=== PATIENT | male | born 1955 | race Caucasian/White ===

== ENCOUNTER 2019-02-13 14:20 | Emergency (ER) | payer OTHER ==
[2019-02-13] MEDS ORDERED: TETRACAINE 0.5% OPHTH DROPS 4 ML EACHEYE ONE (14:29)
--- NOTE | 2019-02-13 14:30 | ED Physician Documentation ---
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 He felt some things bladder up into his left eye was not sure whether it was a piece of the wire or some of the chemical. He washed his eye out with some eyewash for several minutes. It still feels irritated. He is here for evaluation. He does not wear contacts. He states he can still see normally.), Still present Location: Left Quality / character: Burning Associated symptoms: FB sensation. No: Redness, Swelling, Decreased vision Contributing factors: FB, Chemical exposure, acid (may have had some chlorine splatter versus piece of small metal.) Similar symptoms before: Has not had sx before Recently seen: Not recently seen Review of Systems Eyes: denies: Loss of vision, Decreased vision, Photophobia GI: denies: Nausea, Vomiting Neurologic: denies: Headache, Head injury PD PAST MEDICAL HISTORY - Past Medical History Cardiovascular: None Respiratory: None Neuro: None Endocrine/Autoimmune: None - Allergies Allergies/Adverse Reactions: Allergies Allergy/AdvReac Type Severity Reaction Status Date / Time No Known Drug Allergies Allergy Verified 02/13/19 14:27 PD ED PE NORMAL - Vitals Vital signs reviewed: Yes - General General: Alert and oriented X 3, Well developed/nourished, Other (Appears uncomfortable with a held closed. Feels better with the numbing medicine.) - HEENT HEENT: PERRL, EOMI PD ED PE EXPANDED - Eyes Eyes: No eyelid FB (everted), Injected conj/sclera (Some hyperemia of the left eye and mild conjunctival redness.), Corneal abrasion (There is a rounded 2 to 3 mm area of superficial dye uptake at the 4 o'clock position on the eye. There is no linearity. I do not see any foreign body. Seems more likely related to a prior foreign body with scouring effect or possibly chemical irritation.), Fluorescein uptake. No: Eyelid embedded FB, Corneal FB Results - Vitals Vitals: Vital Signs - 24 hr 02/13/19 14:25 Temperature 36.7 C Heart Rate 74 Respiratory 18 Rate Blood Pressure 213/91 H O2 Saturation 95 PD MEDICAL DECISION MAKING - ED course Complexity details: considered differential, d/w patient Departure - Departure Disposition: 01 Home, Self Care Clinical Impression: Acute chemical conjunctivitis Qualifiers: Laterality: left Qualified Code(s): H10.212 - Acute toxic conjunctivitis, left eye Condition: Stable Record reviewed to determine appropriate education?: Yes Instructions: ED Eye Injury Corneal Abrasion Comments: There is some superficial injury of the eye surface. This should improve within a day or so. Rest at home and out of the wind and light. Use the numbing drops as needed with the precautions I talked about (out of wind and dust, to recheck if not improved in 1-2 days. Recheck if not improved in 1 to 1-1/2 days. Return sooner if worsening. Discharge Date/Time: 02/13/19 15:09
[2019-02-13 14:35] VITALS: BP 213/91
[2019-02-13] MEDS ORDERED: NAPROXEN 250 MG TABLET PO STA (14:52)
== END 2019-02-13 15:09 | disposition home or self-care (01) ==
LOC: ED 14:20
DX: H10.212 Acute toxic conjunctivitis, left eye (principal); S00.212A Abrasion of left eyelid and periocular area, initial encounter; X58.XXXA Exposure to other specified factors, initial encounter; Y93.H3 Activity, building and construction; Y92.69 Other specified industrial and construction area as the place of occurrence of the external cause; Y99.0 Civilian activity done for income or pay
CPT/HCPCS: 99282; A9270